=== PATIENT | male | born 1960 | race Caucasian/White ===

== ENCOUNTER → 2021-06-07 | Day surgery (SDC) | payer OTHER ==
[~2021-06-07] MED LIST: Propofol 200 MG/20 ML SDV ONE
[2021-06-07] MEDS: Lactated Ringers 1,000 ML IV SCH (08:08)
[2021-06-07 09:46] VITALS: BP 132/79; PULSE 60
--- NOTE | 2021-06-07 12:04 | OR ---
DATE OF OPERATION: 06/07/2021 PREOPERATIVE DIAGNOSIS: 1. SCREENING COLONOSCOPY. 2. ABNORMAL CAT SCAN SECONDARY TO DIVERTICULITIS. POSTOPERATIVE DIAGNOSIS: 1. SCREENING COLONOSCOPY. 2. ABNORMAL CAT SCAN SECONDARY TO DIVERTICULITIS. SURGEON: Matthew Marinelli MD PROCEDURE: FULL LENGTH COLONOSCOPY. ANESTHESIA: MAC. COMPLICATIONS: None. SPECIMEN: None. FINDINGS: 1. Full length colonoscopy. 2. Earl diverticulosis. 3. No signs of any polyps or malignancies. RECOMMENDATIONS: Routine colonoscopy every 10 years. INDICATIONS: The patient is a 60-year-old male who is overdue for a screening colonoscopy. He had a bout of abdominal pain with CAT scan showing likely diverticulitis. Because he is due for a screening and due to the abnormal CT, we elected to proceed with the scope. DESCRIPTION OF PROCEDURE: The patient was prepped and draped, placed in the left lateral decubitus position. A lubricated Olympus colonoscope was inserted and easily advanced to the cecum. Direct visualization of the ileocecal valve and appendiceal orifice was accomplished. The bowel prep was excellent. Upon withdrawal of the scope, the patient does have earl diverticular disease most prominent as expected in the sigmoid colon, but present all the way to the right side. It was moderate in severity in the left colon. Throughout the length of the colon, I could find no masses, polyps, ulceration, or bleeding sites. No vascular abnormalities or signs of active colitis. The rectal vault was benign. Retroflexion showed no perianal lesions. Air was suctioned, scope removed without complication. MAU/REJI /[id number]
== END ==
LOC: CC.SDS 07:46
PROVIDERS: ATTEND Family Medicine
DX: K57.30 Diverticulosis of large intestine without perforation or abscess without bleeding (principal); N40.0 Benign prostatic hyperplasia without lower urinary tract symptoms; I25.10 Atherosclerotic heart disease of native coronary artery without angina pectoris; I10 Essential (primary) hypertension; E03.9 Hypothyroidism, unspecified; I25.2 Old myocardial infarction; E78.00 Pure hypercholesterolemia, unspecified; Z88.0 Allergy status to penicillin; Z79.82 Long term (current) use of aspirin; Z79.899 Other long term (current) drug therapy; Z79.890 Hormone replacement therapy
CPT/HCPCS: 45378; J2704; J7120